=== PATIENT | female | born 1990 | race Caucasian/White ===

== ENCOUNTER 2017-03-31 16:59 | Emergency (ER) | payer OTHER ==
[~2017-03-31] VITALS: Ht 157.5 cm; Wt 68.0 kg
[~2017-03-31 16:59] MED LIST: CLEOCIN HCL300 M1 PO; MOTRIN600 MG PO
== END 2017-03-31 19:05 | disposition home or self-care (01) ==
LOC: CED 16:59 → CFTX 16:59
DX: K02.9 Dental caries, unspecified (principal); F17.200 Nicotine dependence, unspecified, uncomplicated
CPT/HCPCS: 99283